=== PATIENT | female | born 1950 | race Caucasian/White ===

== ENCOUNTER 2018-05-03 17:12 | Emergency (ER) | payer MEDICAID ==
[~2018-05-03] VITALS: Ht 162.6 cm; Wt 97.0 kg
[~2018-05-03 17:12] MED LIST: ALBU8.5H8 INH; ALPR1TAB2 PO; AMIO200T42 PO; AMIO200T7; BUDE10.2 IH; CARV6.252 PO; CITA20TA9 PO; CITA40TA5 PO; DIGO125T PO; FURO-93 PO; FURO40TA6 PO; HYDR50CA PO; IPRA3AMP30 INH; LAMO150T3 PO; LEVO25TA4 PO; LEVO500T47 PO; LISI5TAB7 PO; METH4TAB2 PO; METO2.5T PO; METO50TA82 PO; MUCINEX PO; OMEP-110 PO; OXYC10TA47 PO; OXYC5CAP2; POTA20PA31 PO; PRED10TA; PRED10TA PO; PRED20TA PO; RIVA20TA PO; SERT50TA; SERT50TA5 PO; SIMV10TA3 PO; WARF2TAB99 PO; WARF4TAB65; WARF5TAB
[2018-05-03 17:46] LABS: BASOPHILS # (AUTO) 0.04 x10^3/uL (0-0.1); BASOPHILS % (AUTO) 0 % (0-1); EOSINOPHILS # (AUTO) 0.05 x10^3/uL (0-0.4); EOSINOPHILS % (AUTO) 0 % (1-7); LYMPHOCYTES # (AUTO) 2.43 x10^3/uL (1-3.4); LYMPHOCYTES % (AUTO) 16 % (22-44); MD NO; MEAN CORPUSCULAR HEMOGLOBIN 26.6 pg (27.0-34.8); MEAN CORPUSCULAR HGB CONC 32.6 g/dL (32.4-35.8); MEAN CORPUSCULAR VOLUME 81.5 fL (80-100); MEAN PLATELET VOLUME 8.5 fL (7.4-10.4); MONOCYTES # (AUTO) 1.31 x10^3/uL (0.2-0.8); MONOCYTES % (AUTO) 9 % (2-9); NEUTROPHILS % (AUTO) 75 % (42-75); PLATELET COUNT 384 x10^3/uL (130-400); RED BLOOD COUNT 5.45 x10^6/uL (3.82-5.3); RED CELL DISTRIBUTION WIDTH 16.4 % (9.6-15.2)
[2018-05-03 18:00] LABS: ALBUMIN 2.9 g/dL (3.4-5.0); ANION GAP 10 mmol/L (5-15); CALCIUM 8.5 mg/dL (8.5-10.1); CHLORIDE 104 mmol/L (98-107); SALICYLATE LEVEL 2.9 mg/dL (2.8-20.0)
[2018-05-03 18:03] LABS: ALANINE AMINOTRANSFERASE 14 U/L (12-78); ALKALINE PHOSPHATASE 93 U/L (45-117); BILIRUBIN,TOTAL 0.7 mg/dL (0.2-1.0); CREATININE 0.85 mg/dL (0.55-1.02); TOTAL PROTEIN 8.1 g/dL (6.4-8.2)
[2018-05-03 18:04] LABS: ACETAMINOPHEN < 2 mcg/mL (10-30)
[2018-05-03] MEDS ORDERED: OXYcodone/APAP 10/325MG TABLET ONE (19:20)
[2018-05-03] MEDS ORDERED: OXYcodone/APAP 10/325MG TABLET PO ONE (19:30)
[2018-05-03 19:36] LABS: AMPHETAMINE SCREEN, URINE Negative (Negative); BARBITURATE SCREEN, URINE Negative (Negative); BENZODIAZEPINE SCREEN, URINE Positive (Negative); CANNABINOID SCREEN, URINE Negative (Negative); COCAINE SCREEN, URINE Negative (Negative); METHADONE SCREEN, URINE Negative (Negative); OPIATE SCREEN, URINE Positive (Negative)
[2018-05-03 20:15] VITALS: BP 164/84
== END 2018-05-03 21:31 | disposition home or self-care (01) ==
LOC: ED 18:36
DX: F32.9 Major depressive disorder, single episode, unspecified (principal); R45.851 Suicidal ideations; I11.0 Hypertensive heart disease with heart failure; I50.9 Heart failure, unspecified; E03.9 Hypothyroidism, unspecified; I25.10 Atherosclerotic heart disease of native coronary artery without angina pectoris; I48.92 Unspecified atrial flutter; I25.2 Old myocardial infarction; J44.9 Chronic obstructive pulmonary disease, unspecified; I44.7 Left bundle-branch block, unspecified; Z90.710 Acquired absence of both cervix and uterus; Z90.89 Acquired absence of other organs; Z93.0 Tracheostomy status; Z88.8 Allergy status to other drugs, medicaments and biological substances
CPT/HCPCS: 36415; 80053; 80307; 80329; 85025; 99284; G0480

== ENCOUNTER 2020-04-29 14:28 | Inpatient (IN) | payer MEDICAID, MEDICARE ==
[~2020-04-29] VITALS: Ht 162.6 cm; Wt 87.0 kg
[~2020-04-29 14:28] MED LIST changes: -DIGO125T PO; +DIGO125T85 PO; +SERT50TA28 PO; -SERT50TA5 PO; +SIMV10TA18 PO; -SIMV10TA3 PO; -WARF5TAB; +WARF5TAB2
[2020-04-29] MEDS ORDERED: SODIUM CHLORIDE 0.9% 1,000ML IVBOLUS ONE (15:30)
[2020-04-29 15:46] LABS: BASOPHILS % (AUTO) 1 % (0-1); EOSINOPHILS % (AUTO) 0 % (1-7); LYMPHOCYTES % (AUTO) 16 % (22-44); MEAN CORPUSCULAR HEMOGLOBIN 19.7 pg (27.0-34.8); MEAN PLATELET VOLUME 8.9 fL (7.4-10.4); MONOCYTES % (AUTO) 12 % (2-9); NEUTROPHILS % (AUTO) 71 % (42-75); PLATELET COUNT 389 x10^3/uL (130-400); RED CELL DISTRIBUTION WIDTH 25.3 % (9.6-15.2)
[2020-04-29] MEDS ORDERED: ASPIRIN 81 MG TABLET CHEW PO ONE (16:00)
[2020-04-29 16:02] LABS: ALANINE AMINOTRANSFERASE 231 U/L (12-78); ALBUMIN 2.7 g/dL (3.4-5.0); ANION GAP 3 mmol/L (5-15); CALCIUM 8.7 mg/dL (8.5-10.1); CHLORIDE 101 mmol/L (98-107); CREATININE 1.14 mg/dL (0.55-1.02)
[2020-04-29 16:06] LABS: SALICYLATE LEVEL < 1.7 mg/dL (2.8-20.0)
[2020-04-29 16:08] LABS: ALKALINE PHOSPHATASE 94 U/L (45-117); BILIRUBIN,TOTAL 1.3 mg/dL (0.2-1.0); TROPONIN I < 0.015 ng/mL (0.000-0.045)
[2020-04-29] MEDS ORDERED: METOPROLOL 1 MG/ML, 5ML ONE ×4 (16:12→19:35)
[2020-04-29] MEDS: METOPROLOL 1 MG/ML, 5ML IVPush PRN ×3 (16:17→17:14)
[2020-04-29 16:47] LABS: MEAN CORPUSCULAR HGB CONC 29.4 g/dL (32.4-35.8)
[2020-04-29 16:49] LABS: MD MORPH REVIEW ONLY
[2020-04-29 16:51] LABS: ANISOCYTOSIS 2+; HYPOCHROMIA 1+; MICROCYTOSIS 2+; TARGET CELLS 1+
[2020-04-29 16:52] LABS: SPHEROCYTES 1+
[2020-04-29 16:53] LABS: ECHINOCYTES 1+; OVALOCYTES 1+; TEAR DROPS 1+
[2020-04-29 16:54] LABS: <PLATELET ESTIMATE> ADEQUATE; <PLT MORPHOLOGY> NORMAL PLT MORPH; ACANTHOCYTES 1+; POLYCHROMASIA 1+
[2020-04-29] MEDS ORDERED: ASPIRIN 81 MG TABLET CHEW ONE (17:05)
[2020-04-29] MEDS ORDERED: METOPROLOL TARTRATE 50 MG TAB PO ONE (18:00)
[2020-04-29] MEDS ORDERED: METOPROLOL TARTRATE 50 MG TAB ONE (18:35)
--- NOTE | 2020-04-29 19:19 | NUR ---
REPORT RECEIVED FROM CARA PLATT
--- NOTE | 2020-04-29 19:20 | NUR ---
PT RESTING IN [facility], EDUCATED ON NEEDING UA, PT STATES SHE CANT URINATE, WILL DO STRAIGHT CATH. HR IN 140'S
[2020-04-29] MEDS ORDERED: METOPROLOL 1 MG/ML, 5ML IVPush ONE (19:30)
--- NOTE | 2020-04-29 19:55 | NUR ---
PT ON BEDPAN FOR UA.
--- NOTE | 2020-04-29 20:00 | NUR ---
[facility] AT BEDSIDE.
[2020-04-29 20:12] LABS: MICROSCOPIC INDICATED
[2020-04-29 20:20] LABS: AMPHETAMINE SCREEN, URINE Negative (Negative); BARBITURATE SCREEN, URINE Negative (Negative); BENZODIAZEPINE SCREEN, URINE Positive (Negative); CANNABINOID SCREEN, URINE Negative (Negative); COCAINE SCREEN, URINE Negative (Negative); METHADONE SCREEN, URINE Negative (Negative); OPIATE SCREEN, URINE Positive (Negative)
--- NOTE | 2020-04-29 21:00 | NUR ---
PT ANXIOUS, REQUESTING XANAX, PENDING [facility] ORDERS. PROVIDED THERAPUETC COMMUNICTION, PT APPEARS MUCH CALMER AFTER. PT UPDATED ON POC.
[2020-04-29] MEDS ORDERED: ACETAMINOPHEN 325 MG TABLET ONE (21:19)
[2020-04-29] MEDS: ACETAMINOPHEN 325 MG TABLET PO PRN (21:24)
--- NOTE | 2020-04-29 21:38 | NUR ---
REPORT ATTEMPT #1, NO ANSWER
--- NOTE | 2020-04-29 21:49 | NUR ---
REPORT GIVN TO ROBERTO PLATT
[2020-04-29 22:14] LABS: IRON LEVEL 30 mcg/dL (50-170)
[2020-04-29 22:27] VITALS: BP 94/70
[2020-04-29 22:41] LABS: % IRON SATURATION 6 % (20-55); TOTAL IRON BINDING CAPACITY 487 mcg/dL (250-450); TROPONIN I < 0.015 ng/mL (0.000-0.045)
[2020-04-29] MEDS: TEMAZEPAM 30 MG CAPSULE PO PRN (22:53)
[2020-04-30] VITALS (7 sets, daily range): BP systolic 93–137; BP diastolic 52–70
[2020-04-30 03:45] LABS: BASOPHILS % (AUTO) 1 % (0-1); EOSINOPHILS % (AUTO) 1 % (1-7); LYMPHOCYTES % (AUTO) 26 % (22-44); MEAN CORPUSCULAR HEMOGLOBIN 19.7 pg (27.0-34.8); MONOCYTES % (AUTO) 16 % (2-9); NEUTROPHILS % (AUTO) 58 % (42-75); PLATELET COUNT 324 x10^3/uL (130-400); RED CELL DISTRIBUTION WIDTH 25.4 % (9.6-15.2)
[2020-04-30 03:48] LABS: ANION GAP 4 mmol/L (5-15); CALCIUM 8.2 mg/dL (8.5-10.1); CHLORIDE 101 mmol/L (98-107); CREATININE 1.46 mg/dL (0.55-1.02)
[2020-04-30 03:53] LABS: TROPONIN I < 0.015 ng/mL (0.000-0.045)
[2020-04-30 04:09] LABS: MD SCAN; MEAN CORPUSCULAR HGB CONC 29.4 g/dL (32.4-35.8)
[2020-04-30] MEDS: OXYcodone IR 5MG TABLET PO PRN ×2 (04:40→15:55)
[2020-04-30] MEDS ORDERED: SIMVASTATIN 20 MG TABLET PO SCH (09:00)
[2020-04-30] MEDS ORDERED: CITALOPRAM 20 MG TABLET PO SCH ×2 (09:00)
[2020-04-30] MEDS: FLUTICASONE/VILANTEROL 100-25MCG/INH INH SCH (09:00)
[2020-04-30] MEDS ORDERED: METOPROLOL TARTRATE 50 MG TAB PO SCH ×2 (09:30→18:00)
[2020-04-30] MEDS: FERROUS SULFATE 325 MG TABLET PO SCH (10:25)
[2020-04-30] MEDS: LEVOTHYROXINE 50 MCG TABLET PO SCH (10:25)
[2020-04-30] MEDS: LAMOTRIGINE 25 MG TABLET PO SCH (10:26)
[2020-04-30] MEDS: OMEPRAZOLE 20 MG CAPSULE.DR PO SCH (10:26)
[2020-04-30] MEDS: DOCUSATE 100 MG CAPSULE PO PRN (10:34)
[2020-04-30] MEDS: RIVAROXABAN 20 MG TABLET PO SCH (16:19)
[2020-04-30 16:36] LABS: MICROSCOPIC AUTO
[2020-04-30] MEDS ORDERED: FLUCONAZOLE 50 MG TABLET PO ONE (18:00)
[2020-04-30] MEDS: METOPROLOL TARTRATE 50 MG TAB PO SCH (19:39)
[2020-04-30] MEDS: TEMAZEPAM 30 MG CAPSULE PO PRN (21:24)
[2020-04-30] MEDS: ACETAMINOPHEN 325 MG TABLET PO PRN (21:25)
[2020-04-30] MEDS: CLOTRIMAZOLE CRM 1%, 15GM TP SCH (23:06)
[2020-05-01 03:01] VITALS: BP 110/68
[2020-05-01] MEDS: LEVOTHYROXINE 50 MCG TABLET PO SCH (05:35)
[2020-05-01] MEDS: METOPROLOL TARTRATE 50 MG TAB PO SCH (05:36)
[2020-05-01 07:56] VITALS: BP 106/71
[2020-05-01] MEDS ORDERED: CITALOPRAM 20 MG TABLET PO SCH (09:00)
[2020-05-01] MEDS ORDERED: FUROSEMIDE 40 MG/4 ML IV SCH (09:00)
[2020-05-01] MEDS ORDERED: NITROFURANTOIN (MACROBID) 100 MG CAPSULE PO SCH (09:30)
[2020-05-01] MEDS: FERROUS SULFATE 325 MG TABLET PO SCH (10:32)
[2020-05-01] MEDS: OMEPRAZOLE 20 MG CAPSULE.DR PO SCH (10:32)
[2020-05-01] MEDS: DIGOXIN 0.125 MG TABLET PO SCH (10:33)
[2020-05-01] MEDS: CITALOPRAM 20 MG TABLET PO SCH (10:33)
[2020-05-01] MEDS: METOPROLOL SUCCINATE 50 MG TAB.ER.24H PO SCH (10:33)
[2020-05-01] MEDS: LISINOPRIL 5 MG TABLET PO SCH (10:33)
[2020-05-01] MEDS: LAMOTRIGINE 25 MG TABLET PO SCH (10:33)
[2020-05-01] MEDS: SERTRALINE 50MG TABLET PO SCH (10:34)
[2020-05-01] MEDS: LACTOBACILLUS CHEW TABLET PO SCH ×3 (10:34→22:18)
[2020-05-01] MEDS: FLUTICASONE/VILANTEROL 100-25MCG/INH INH SCH (10:34)
[2020-05-01] MEDS: ERTAPENEM 1 GM in SODIUM CHLORIDE 0.9% 50 ML IV SCH (10:39)
[2020-05-01] MEDS: MULTIVITAMIN 1 TABLET PO SCH (10:41)
[2020-05-01] MEDS ORDERED: FLUCONAZOLE 50 MG TABLET PO ONE (11:00)
[2020-05-01 12:51] VITALS: BP 119/69
[2020-05-01] MEDS: RIVAROXABAN 20 MG TABLET PO SCH (17:07)
[2020-05-01] MEDS: DOCUSATE 100 MG CAPSULE PO PRN (17:11)
[2020-05-01 19:41] VITALS: BP 97/59
[2020-05-01] MEDS: ATORVASTATIN 40 MG TABLET PO SCH (22:18)
[2020-05-01] MEDS: CLOTRIMAZOLE CRM 1%, 15GM TP SCH (22:18)
[2020-05-01] MEDS: OXYcodone IR 5MG TABLET PO PRN (22:19)
[2020-05-02 01:15] VITALS: BP 135/75
[2020-05-02 05:31] LABS: BASOPHILS % (AUTO) 1 % (0-1); EOSINOPHILS % (AUTO) 2 % (1-7); LYMPHOCYTES % (AUTO) 24 % (22-44); MEAN CORPUSCULAR HEMOGLOBIN 19.8 pg (27.0-34.8); MONOCYTES % (AUTO) 13 % (2-9); NEUTROPHILS % (AUTO) 61 % (42-75); PLATELET COUNT 239 x10^3/uL (130-400); RED BLOOD COUNT 3.89 x10^6/uL (3.82-5.3); RED CELL DISTRIBUTION WIDTH 24.5 % (9.6-15.2)
[2020-05-02 05:45] LABS: CHLORIDE 105 mmol/L (98-107)
[2020-05-02 05:54] LABS: ALANINE AMINOTRANSFERASE 126 U/L (12-78); ALBUMIN 2.4 g/dL (3.4-5.0); ALKALINE PHOSPHATASE 83 U/L (45-117); ANION GAP 4 mmol/L (5-15); BILIRUBIN,TOTAL 0.6 mg/dL (0.2-1.0); CALCIUM 8.3 mg/dL (8.5-10.1); CREATININE 1.24 mg/dL (0.55-1.02); TOTAL PROTEIN 6.9 g/dL (6.4-8.2)
[2020-05-02 05:56] LABS: MEAN CORPUSCULAR HGB CONC 29.3 g/dL (32.4-35.8)
[2020-05-02 05:57] LABS: MD NO
[2020-05-02] MEDS: LEVOTHYROXINE 50 MCG TABLET PO SCH (06:40)
[2020-05-02] MEDS: METOPROLOL SUCCINATE 50 MG TAB.ER.24H PO SCH (06:40)
[2020-05-02 06:41] VITALS: BP 103/65
[2020-05-02 06:56] VITALS: BP 98/64
[2020-05-02] MEDS: LISINOPRIL 5 MG TABLET PO SCH (09:00)
[2020-05-02] MEDS ORDERED: FUROSEMIDE 40 MG TABLET ONE (09:24)
[2020-05-02] MEDS: OMEPRAZOLE 20 MG CAPSULE.DR PO SCH (09:29)
[2020-05-02] MEDS: FERROUS SULFATE 325 MG TABLET PO SCH (09:29)
[2020-05-02] MEDS: DIGOXIN 0.125 MG TABLET PO SCH (09:29)
[2020-05-02] MEDS: MULTIVITAMIN 1 TABLET PO SCH (09:29)
[2020-05-02] MEDS: SERTRALINE 50MG TABLET PO SCH (09:29)
[2020-05-02] MEDS: FLUTICASONE/VILANTEROL 100-25MCG/INH INH SCH (09:30)
[2020-05-02] MEDS: LAMOTRIGINE 25 MG TABLET PO SCH (09:30)
[2020-05-02] MEDS: FUROSEMIDE 40 MG TABLET PO SCH ×2 (09:30→17:22)
[2020-05-02] MEDS: LACTOBACILLUS CHEW TABLET PO SCH ×4 (09:30→20:17)
[2020-05-02] MEDS: DOCUSATE 100 MG CAPSULE PO PRN (11:34)
[2020-05-02] MEDS: ERTAPENEM 1 GM in SODIUM CHLORIDE 0.9% 50 ML IV SCH (11:34)
[2020-05-02 14:28] VITALS: BP 119/79
[2020-05-02] MEDS: RIVAROXABAN 20 MG TABLET PO SCH (17:21)
[2020-05-02 19:13] VITALS: BP 127/77
[2020-05-02] MEDS: ATORVASTATIN 40 MG TABLET PO SCH (20:17)
[2020-05-02] MEDS: CLOTRIMAZOLE CRM 1%, 15GM TP SCH (20:17)
[2020-05-03 01:27] VITALS: BP 132/72
[2020-05-03 04:42] LABS: CALCIUM 8.5 mg/dL (8.5-10.1); CREATININE 0.99 mg/dL (0.55-1.02)
[2020-05-03 04:52] LABS: ANION GAP 2 mmol/L (5-15); CHLORIDE 100 mmol/L (98-107)
[2020-05-03] MEDS: LEVOTHYROXINE 50 MCG TABLET PO SCH (05:17)
[2020-05-03 05:31] LABS: BASOPHILS % (AUTO) 1 % (0-1); EOSINOPHILS % (AUTO) 1 % (1-7); LYMPHOCYTES % (AUTO) 16 % (22-44); MEAN CORPUSCULAR HEMOGLOBIN 19.7 pg (27.0-34.8); MEAN PLATELET VOLUME 8.9 fL (7.4-10.4); MONOCYTES % (AUTO) 12 % (2-9); NEUTROPHILS % (AUTO) 70 % (42-75); PLATELET COUNT 237 x10^3/uL (130-400); RED BLOOD COUNT 4.14 x10^6/uL (3.82-5.3); RED CELL DISTRIBUTION WIDTH 25.4 % (9.6-15.2)
[2020-05-03 05:51] LABS: MD NO; MEAN CORPUSCULAR HGB CONC 29.5 g/dL (32.4-35.8)
[2020-05-03 06:17] VITALS: BP 110/74
[2020-05-03] MEDS: LACTOBACILLUS CHEW TABLET PO SCH ×4 (06:19→20:59)
[2020-05-03] MEDS: FUROSEMIDE 40 MG TABLET PO SCH (06:19)
[2020-05-03] MEDS: METOPROLOL SUCCINATE 50 MG TAB.ER.24H PO SCH (06:20)
[2020-05-03 07:38] VITALS: BP 99/73
[2020-05-03] MEDS ORDERED: MAGNESIUM SULFATE PMX 4GM/100M 100 ML IVPB ONE (09:00)
[2020-05-03] MEDS: LISINOPRIL 5 MG TABLET PO SCH (09:00)
[2020-05-03] MEDS: SERTRALINE 50MG TABLET PO SCH (10:27)
[2020-05-03] MEDS: MULTIVITAMIN 1 TABLET PO SCH (10:28)
[2020-05-03] MEDS: DIGOXIN 0.125 MG TABLET PO SCH (10:28)
[2020-05-03] MEDS: FLUTICASONE/VILANTEROL 100-25MCG/INH INH SCH (10:28)
[2020-05-03] MEDS: OMEPRAZOLE 20 MG CAPSULE.DR PO SCH (10:28)
[2020-05-03] MEDS: FERROUS SULFATE 325 MG TABLET PO SCH (10:28)
[2020-05-03] MEDS: CITALOPRAM 20 MG TABLET PO SCH (10:28)
[2020-05-03] MEDS: LAMOTRIGINE 25 MG TABLET PO SCH (10:28)
[2020-05-03] MEDS: ERTAPENEM 1 GM in SODIUM CHLORIDE 0.9% 50 ML IV SCH (11:57)
[2020-05-03 13:04] VITALS: BP 120/68
[2020-05-03] MEDS: RIVAROXABAN 20 MG TABLET PO SCH (16:41)
[2020-05-03] MEDS: OXYcodone IR 5MG TABLET PO PRN (16:41)
[2020-05-03 20:52] VITALS: BP 93/58
[2020-05-03] MEDS: ATORVASTATIN 40 MG TABLET PO SCH (20:59)
[2020-05-03] MEDS: CLOTRIMAZOLE CRM 1%, 15GM TP SCH (21:00)
[2020-05-03] MEDS: TEMAZEPAM 30 MG CAPSULE PO PRN (21:25)
[2020-05-04 01:46] VITALS: BP 96/59
[2020-05-04] MEDS: LEVOTHYROXINE 50 MCG TABLET PO SCH (06:03)
[2020-05-04] MEDS: LACTOBACILLUS CHEW TABLET PO SCH ×4 (06:03→21:05)
[2020-05-04] MEDS: METOPROLOL SUCCINATE 50 MG TAB.ER.24H PO SCH (06:04)
[2020-05-04 06:34] LABS: ANION GAP 0 mmol/L (5-15); CALCIUM 8.2 mg/dL (8.5-10.1); CHLORIDE 101 mmol/L (98-107); CREATININE 1.04 mg/dL (0.55-1.02)
[2020-05-04 06:54] VITALS: BP 133/71
[2020-05-04] MEDS: FERROUS SULFATE 325 MG TABLET PO SCH (09:39)
[2020-05-04] MEDS: LAMOTRIGINE 25 MG TABLET PO SCH (09:39)
[2020-05-04] MEDS: FLUTICASONE/VILANTEROL 100-25MCG/INH INH SCH ×2 (09:40→09:44)
[2020-05-04] MEDS: LISINOPRIL 5 MG TABLET PO SCH (09:40)
[2020-05-04] MEDS: FUROSEMIDE 40 MG TABLET PO SCH (09:40)
[2020-05-04] MEDS: DIGOXIN 0.125 MG TABLET PO SCH (09:40)
[2020-05-04] MEDS: SERTRALINE 50MG TABLET PO SCH (09:40)
[2020-05-04] MEDS: MULTIVITAMIN 1 TABLET PO SCH (09:40)
[2020-05-04] MEDS: OMEPRAZOLE 20 MG CAPSULE.DR PO SCH (09:40)
[2020-05-04 10:26] LABS: FREE T4 (FREE THYROXINE) 1.12 ng/dL (0.76-1.46)
[2020-05-04] MEDS: ERTAPENEM 1 GM in SODIUM CHLORIDE 0.9% 50 ML IV SCH (11:42)
[2020-05-04 12:43] VITALS: BP 109/77
[2020-05-04] MEDS: RIVAROXABAN 20 MG TABLET PO SCH (16:56)
[2020-05-04 19:07] VITALS: BP 101/62
[2020-05-04] MEDS: CLOTRIMAZOLE CRM 1%, 15GM TP SCH (21:05)
[2020-05-04] MEDS: ATORVASTATIN 40 MG TABLET PO SCH (21:05)
[2020-05-04] MEDS: OXYcodone IR 5MG TABLET PO PRN (21:16)
[2020-05-05 00:38] VITALS: BP 100/67
[2020-05-05] MEDS: METOPROLOL SUCCINATE 50 MG TAB.ER.24H PO SCH (06:08)
[2020-05-05] MEDS: LACTOBACILLUS CHEW TABLET PO SCH ×4 (06:08→21:50)
[2020-05-05] MEDS: LEVOTHYROXINE 50 MCG TABLET PO SCH (06:08)
[2020-05-05 07:39] VITALS: BP 99/52
[2020-05-05] MEDS: FERROUS SULFATE 325 MG TABLET PO SCH (08:00)
[2020-05-05 08:34] VITALS: BP 107/66
[2020-05-05] MEDS: FUROSEMIDE 40 MG TABLET PO SCH (08:35)
[2020-05-05] MEDS: MULTIVITAMIN 1 TABLET PO SCH (08:35)
[2020-05-05] MEDS: DIGOXIN 0.125 MG TABLET PO SCH (08:35)
[2020-05-05] MEDS: SERTRALINE 50MG TABLET PO SCH (08:35)
[2020-05-05] MEDS: OMEPRAZOLE 20 MG CAPSULE.DR PO SCH (08:36)
[2020-05-05] MEDS: LISINOPRIL 5 MG TABLET PO SCH (08:36)
[2020-05-05] MEDS: FLUTICASONE/VILANTEROL 100-25MCG/INH INH SCH (08:36)
[2020-05-05] MEDS: LAMOTRIGINE 25 MG TABLET PO SCH (08:36)
[2020-05-05] MEDS: ERTAPENEM 1 GM in SODIUM CHLORIDE 0.9% 50 ML IV SCH (11:09)
[2020-05-05 12:45] VITALS: BP 104/66
[2020-05-05] MEDS: RIVAROXABAN 20 MG TABLET PO SCH (16:56)
[2020-05-05 20:53] VITALS: BP 100/61
[2020-05-05] MEDS: ATORVASTATIN 40 MG TABLET PO SCH (21:50)
[2020-05-05] MEDS: CLOTRIMAZOLE CRM 1%, 15GM TP SCH (21:50)
[2020-05-06] MEDS: OXYcodone IR 5MG TABLET PO PRN ×2 (00:17→21:48)
[2020-05-06 00:19] VITALS: BP 103/66
[2020-05-06] MEDS: LEVOTHYROXINE 50 MCG TABLET PO SCH (05:40)
[2020-05-06] MEDS: METOPROLOL SUCCINATE 50 MG TAB.ER.24H PO SCH (05:40)
[2020-05-06 07:19] VITALS: BP 121/71
[2020-05-06] MEDS: FLUTICASONE/VILANTEROL 100-25MCG/INH INH SCH (10:16)
[2020-05-06] MEDS: LACTOBACILLUS CHEW TABLET PO SCH ×4 (10:17→21:48)
[2020-05-06] MEDS: FERROUS SULFATE 325 MG TABLET PO SCH (10:17)
[2020-05-06] MEDS: LAMOTRIGINE 25 MG TABLET PO SCH (10:17)
[2020-05-06] MEDS: FUROSEMIDE 40 MG TABLET PO SCH (10:17)
[2020-05-06] MEDS: DIGOXIN 0.125 MG TABLET PO SCH (10:17)
[2020-05-06] MEDS: OMEPRAZOLE 20 MG CAPSULE.DR PO SCH (10:18)
[2020-05-06] MEDS: LISINOPRIL 5 MG TABLET PO SCH (10:18)
[2020-05-06] MEDS: MULTIVITAMIN 1 TABLET PO SCH (10:18)
[2020-05-06] MEDS: SERTRALINE 50MG TABLET PO SCH (10:18)
[2020-05-06] MEDS: ERTAPENEM 1 GM in SODIUM CHLORIDE 0.9% 50 ML IV SCH (10:37)
[2020-05-06 13:13] VITALS: BP 110/59
[2020-05-06] MEDS: RIVAROXABAN 20 MG TABLET PO SCH (16:25)
[2020-05-06 20:56] VITALS: BP 112/66
[2020-05-06] MEDS: ATORVASTATIN 40 MG TABLET PO SCH (21:00)
[2020-05-06] MEDS: CLOTRIMAZOLE CRM 1%, 15GM TP SCH (21:00)
[2020-05-07 01:17] VITALS: BP 111/56
[2020-05-07 06:11] VITALS: BP 114/66
[2020-05-07] MEDS: LEVOTHYROXINE 50 MCG TABLET PO SCH (06:12)
[2020-05-07] MEDS: METOPROLOL SUCCINATE 50 MG TAB.ER.24H PO SCH (06:12)
[2020-05-07 06:49] VITALS: BP 103/66
[2020-05-07] MEDS: SERTRALINE 50MG TABLET PO SCH (10:29)
[2020-05-07] MEDS: LAMOTRIGINE 25 MG TABLET PO SCH (10:30)
[2020-05-07] MEDS: FERROUS SULFATE 325 MG TABLET PO SCH (10:30)
[2020-05-07] MEDS: OMEPRAZOLE 20 MG CAPSULE.DR PO SCH (10:30)
[2020-05-07] MEDS: LACTOBACILLUS CHEW TABLET PO SCH ×4 (10:30→20:28)
[2020-05-07] MEDS: MULTIVITAMIN 1 TABLET PO SCH (10:30)
[2020-05-07] MEDS: FLUTICASONE/VILANTEROL 100-25MCG/INH INH SCH (10:31)
[2020-05-07] MEDS: LISINOPRIL 5 MG TABLET PO SCH (10:33)
[2020-05-07 10:39] VITALS: BP 98/61
[2020-05-07] MEDS: DIGOXIN 0.125 MG TABLET PO SCH (10:44)
[2020-05-07] MEDS: ERTAPENEM 1 GM in SODIUM CHLORIDE 0.9% 50 ML IV SCH (12:21)
[2020-05-07 13:14] VITALS: BP 107/64
[2020-05-07] MEDS: RIVAROXABAN 20 MG TABLET PO SCH (16:48)
[2020-05-07 19:58] VITALS: BP 103/63
[2020-05-07] MEDS: ATORVASTATIN 40 MG TABLET PO SCH (20:28)
[2020-05-07] MEDS: CLOTRIMAZOLE CRM 1%, 15GM TP SCH (20:32)
[2020-05-08 01:05] VITALS: BP 122/73
[2020-05-08] MEDS: OXYcodone IR 5MG TABLET PO PRN ×2 (01:06→09:40)
[2020-05-08] MEDS: LEVOTHYROXINE 50 MCG TABLET PO SCH (05:01)
[2020-05-08] MEDS: METOPROLOL SUCCINATE 50 MG TAB.ER.24H PO SCH (05:01)
[2020-05-08 05:47] LABS: CREATININE 0.91 mg/dL (0.55-1.02)
[2020-05-08] MEDS: LACTOBACILLUS CHEW TABLET PO SCH ×4 (05:58→20:38)
[2020-05-08 07:13] VITALS: BP 109/60
[2020-05-08 09:21] VITALS: BP 102/63
[2020-05-08] MEDS: FLUTICASONE/VILANTEROL 100-25MCG/INH INH SCH (09:22)
[2020-05-08] MEDS: LISINOPRIL 5 MG TABLET PO SCH (09:23)
[2020-05-08] MEDS: DIGOXIN 0.125 MG TABLET PO SCH (09:24)
[2020-05-08] MEDS: LAMOTRIGINE 25 MG TABLET PO SCH (09:24)
[2020-05-08] MEDS: SERTRALINE 50MG TABLET PO SCH (09:24)
[2020-05-08] MEDS: FERROUS SULFATE 325 MG TABLET PO SCH (09:25)
[2020-05-08] MEDS: OMEPRAZOLE 20 MG CAPSULE.DR PO SCH (09:25)
[2020-05-08] MEDS: MULTIVITAMIN 1 TABLET PO SCH (09:25)
[2020-05-08] MEDS: ERTAPENEM 1 GM in SODIUM CHLORIDE 0.9% 50 ML IV SCH (11:39)
[2020-05-08 12:05] VITALS: BP 143/69
[2020-05-08] MEDS: RIVAROXABAN 20 MG TABLET PO SCH (17:15)
[2020-05-08 20:04] VITALS: BP 101/65
[2020-05-08] MEDS: CLOTRIMAZOLE CRM 1%, 15GM TP SCH (20:38)
[2020-05-08] MEDS: ATORVASTATIN 40 MG TABLET PO SCH (20:38)
[2020-05-09] MEDS: OXYcodone IR 5MG TABLET PO PRN (00:45)
[2020-05-09 00:48] VITALS: BP 103/63
[2020-05-09] MEDS: LEVOTHYROXINE 50 MCG TABLET PO SCH (05:54)
[2020-05-09] MEDS: METOPROLOL SUCCINATE 50 MG TAB.ER.24H PO SCH (08:00)
[2020-05-09 08:08] VITALS: BP 97/48
[2020-05-09] MEDS: LISINOPRIL 5 MG TABLET PO SCH (08:45)
[2020-05-09] MEDS: OMEPRAZOLE 20 MG CAPSULE.DR PO SCH (08:45)
[2020-05-09] MEDS: LAMOTRIGINE 25 MG TABLET PO SCH (08:45)
[2020-05-09] MEDS: LACTOBACILLUS CHEW TABLET PO SCH ×2 (08:45→10:57)
[2020-05-09] MEDS: MULTIVITAMIN 1 TABLET PO SCH (08:46)
[2020-05-09] MEDS: FERROUS SULFATE 325 MG TABLET PO SCH (08:46)
[2020-05-09] MEDS: DIGOXIN 0.125 MG TABLET PO SCH (08:46)
[2020-05-09] MEDS: SERTRALINE 50MG TABLET PO SCH (08:46)
[2020-05-09] MEDS: FLUTICASONE/VILANTEROL 100-25MCG/INH INH SCH (10:57)
[2020-05-09] MEDS: ERTAPENEM 1 GM in SODIUM CHLORIDE 0.9% 50 ML IV SCH (11:35)
[2020-05-09] MEDS ORDERED: SERT50TA28 PO (13:41)
== END 2020-05-09 15:17 | disposition home or self-care (01) | DRG 201 ==
LOC: ED 17:58 → EDIP 18:13 → 5SO 22:10
PROVIDERS: ADMIT Internal Medicine; ATTEND Family Medicine
DX: I48.91 Unspecified atrial fibrillation (principal); B37.3 Candidiasis of vulva and vagina; D50.9 Iron deficiency anemia, unspecified; D68.69 Other thrombophilia; E03.9 Hypothyroidism, unspecified; E66.01 Morbid (severe) obesity due to excess calories; E87.1 Hypo-osmolality and hyponatremia; F17.210 Nicotine dependence, cigarettes, uncomplicated; F31.4 Bipolar disorder, current episode depressed, severe, without psychotic features; F41.1 Generalized anxiety disorder; G47.00 Insomnia, unspecified; G47.30 Sleep apnea, unspecified; G89.29 Other chronic pain; I08.3 Combined rheumatic disorders of mitral, aortic and tricuspid valves; I11.0 Hypertensive heart disease with heart failure; I25.10 Atherosclerotic heart disease of native coronary artery without angina pectoris; I27.20 Pulmonary hypertension, unspecified; I44.7 Left bundle-branch block, unspecified; I50.43 Acute on chronic combined systolic (congestive) and diastolic (congestive) heart failure; J18.9 Pneumonia, unspecified organism; J44.0 Chronic obstructive pulmonary disease with (acute) lower respiratory infection; J96.10 Chronic respiratory failure, unspecified whether with hypoxia or hypercapnia; L08.9 Local infection of the skin and subcutaneous tissue, unspecified; N17.0 Acute kidney failure with tubular necrosis; N39.0 Urinary tract infection, site not specified; R45.851 Suicidal ideations; Z16.12 Extended spectrum beta lactamase (ESBL) resistance; Z79.01 Long term (current) use of anticoagulants; Z79.890 Hormone replacement therapy; I25.2 Old myocardial infarction; Z79.891 Long term (current) use of opiate analgesic; Z79.899 Other long term (current) drug therapy; Z80.3 Family history of malignant neoplasm of breast; Z82.49 Family history of ischemic heart disease and other diseases of the circulatory system; Z86.73 Personal history of transient ischemic attack (TIA), and cerebral infarction without residual deficits; Z90.710 Acquired absence of both cervix and uterus; Z91.5 Personal history of self-harm; Z99.81 Dependence on supplemental oxygen; Z68.32 Body mass index [BMI] 32.0-32.9, adult; Z93.0 Tracheostomy status; M19.90 Unspecified osteoarthritis, unspecified site
CPT/HCPCS: 36415; 36573; 71045; 80048; 80053; 80162; 80307; 81001; 82565; 82607; 82728; 83540; 83550; 83735; 83880; 84100; 84439; 84443; 84481; 84484; 85025; 87077; 87081; 87086; 87184; 87186; 93005; 93306; 96374; 96375; 96376; G0378; J1335; J1940; C1751; J3475; J7030